=== PATIENT | female | born 1990 | race Two or more races ===

== ENCOUNTER 2021-11-28 05:46 | Day surgery (SDC) | payer OTHER ==
[2021-11-28] MEDS ORDERED: IBU600 MG PO (08:52)
[2021-11-28] MEDS ORDERED: PERCOCET 5-3251 EACH PO (08:52)
== END 2021-11-28 11:00 | disposition home or self-care (01) ==
LOC: CIR.AMB 05:46
PROVIDERS: ATTEND Obstetrics & Gynecology Gynecology
DX: Z30.2 Encounter for sterilization (principal); Z20.822 Contact with and (suspected) exposure to COVID-19